=== PATIENT | female | born 1995 | race Caucasian/White ===

== ENCOUNTER 2023-01-07 10:41 | Emergency (ER) | payer MEDICAID, SELFPAY ==
[2023-01-07 10:42] VITALS: BP 108/74; PULSE 93; RESP 18; TEMP 36.6; O2SAT 100; BMI 27.3
--- NOTE | 2023-01-07 11:07 | EX.ED.DYSGE1 ---
HPI History of Present Illness Chief Complaint: Complaint Informant: patient Onset/Context/Timing Onset: Days (5) Context: Gradual Onset Timing: Intermittent Quality: Sharp Location: Left lower quadrant and left lower back Worsened by: Urination Relieved by: Drinking water Narrative Narrative: Patient presents with pelvic pain that has been getting worse over the last 5 days. Patient states it came on gradually. Patient states it is intermittent. Patient states the pain is sharp. Patient states it is over the left lower abdomen and radiates into her back. Patient states it is worse with urination. Patient states it is better after she drinks water. Patient admits to some burning with urination. Patient admits to some nausea but denies any vomiting. Patient denies any fevers or chills. Patient is approximately 19 weeks . Patient denies any abnormal vaginal bleeding or discharge. [facility] Medical History (Updated 01/07/23 @ 15:[address] Israel Rojas DO) GERD (gastroesophageal reflux disease) Medical History no medical history Home Medications hydrocodone-acetaminophen 5-325mg 5mg-325mg 1 tab PO Q6H PRN PRN Pain 3 days #10 TABLETS 01/07/23 [Rx Last Taken Unknown] Allergy/AdvReac Type Severity Reaction Status Date / Time No Known Allergies Allergy Verified 01/07/23 10:41 Surgical History no surgical history no surgical history Social History Smoking Status: Unknown if ever smoked ROS ROS ED Constitutional Constitutional ED: Denies chills or fever(s) Eyes Eyes: Denies blurry vision or change in vision ENT ENT ED: Denies rhinorrhea or sore throat Cardiovascular Cardiovascular: Denies chest pain or palpitations Respiratory/Chest Respiratory/Chest: Denies cough or dyspnea Gastrointestinal Gastrointestinal: Reports abdominal pain and nausea; Denies vomiting Genitourinary Genitourinary ED: Reports dysuria; Denies hematuria Musculoskeletal Musculoskeletal: Reports back pain; Denies neck pain Integumentary Denies abscess or rash Neurologic Neurologic: Denies headache(s) or weakness Allergic/Immunologic Allergic/Immunologic ED: Denies mouth swelling or urticaria EXAM Physical Exam Const Vital Signs: 01/07/23 10:42 01/07/23 14:00 Temperature 97.8 F Temperature Source Temporal Pulse Rate 93 78 Respiratory Rate 18 16 Blood Pressure 108/74 124/67 H Blood Pressure Mean 85 86 Pulse Ox 100 98 Oxygen Delivery Method Room Air Room Air Positive well nourished and well developed General Appearance ED: well developed HEENT Reports moist mucous membranes Neck supple and no JVD Resp normal respiratory effort and clear to auscultation bilaterally Cardio regular rate, regular rhythm and no murmurs GI normal to inspection, nondistended, normoactive bowel sounds Palpation: soft and tender LLQ; Negative for guarding or rebound tenderness present Extremity normal to inspection General Extremety ED: Negative for edema or tenderness General Extremity: Negative for edema Neuro oriented x3, CN's II-XII intact bilaterally and no sensory deficits noted Sensorium / Orientation: alert Motor Exam: strength 5/5 throughout Psych mental status grossly normal Skin no rashes or lesions noted MDM MDM MDM Narrative Medical decision making narrative: Differential diagnosis includes urinary tract infection, ovarian cyst, ureteral calculus, diverticulitis, and colitis. Urinalysis will be obtained to assess for urinary tract infection and hematuria. CBC will be obtained to assess for leukocytosis and anemia. Basic metabolic profile will be obtained to assess for electrolyte abnormality and renal function. Quantitative hCG will be obtained to assess for status. Urinalysis will be obtained to assess for urinary tract infection. Transvaginal ultrasound will be obtained to assess for and ovarian cyst. Lab Data Attestation: I reviewed the patient's lab results. Lab results narrative: CBC was reviewed. There is a slight leukocytosis of 11.1. This is likely from the . Basic metabolic profile was reviewed and was essentially within normal limits. Urinalysis was reviewed. There is no evidence of urinary tract infection or hematuria. Quantitative hCG was reviewed and was [id number]. Labs: Laboratory Results - last 24 hr 01/07/23 01/07/23 01/07/23 11:21 12:18 12:18 WBC 11.1 H RBC 4.14 L Hgb 13.1 Hct 39.9 MCV 96.4 MCH 31.6 MCHC 32.8 RDW Std Deviation 46.3 H RDW Coeff of Mireya 13.2 Plt Count 356 MPV 9.4 Immature Gran % (Auto) 0.900 Neut % (Auto) 80.3 H Lymph % (Auto) 12.0 L [place] % (Auto) 4.5 Eos % (Auto) 1.9 Baso % (Auto) 0.4 Absolute Neuts (auto) 8.9 H Absolute Lymphs (auto) 1.33 Nucleated RBC % 0 Sodium 134 L Potassium 3.5 Chloride 105 Carbon Dioxide 26.0 Anion Gap 3 L BUN 12 Creatinine 0.51 L Estim Creat Clear Calc 140.55 Est GFR (MDRD) Af Amer 182 Est GFR (MDRD) Non-Af 150 BUN/Creatinine Ratio 23.5 H Glucose 88 Calcium 9.3 HCG, Quant Urine Color Yellow Urine Clarity Sl. Cloudy Urine pH 6.0 Ur Specific Maud 1.025 Urine Protein 15 H Urine Glucose (UA) Normal Urine Ketones Negative Urine Occult Blood Negative Urine Nitrite Negative Urine Bilirubin Negative Urine Urobilinogen 1 H Ur Leukocyte Esterase 25 H Urine RBC 0 SEEN Urine WBC 0-5 SEEN Ur Squamous Epith Cells 0-5 SEEN Urine Bacteria 1+ Urine Mucus 0 SEEN 01/07/23 12:18 WBC RBC Hgb Hct MCV MCH MCHC RDW Std Deviation RDW Coeff of Mireya Plt Count MPV Immature Gran % (Auto) Neut % (Auto) Lymph % (Auto) [place] % (Auto) Eos % (Auto) Baso % (Auto) Absolute Neuts (auto) Absolute Lymphs (auto) Nucleated RBC % Sodium Potassium Chloride Carbon Dioxide Anion Gap BUN Creatinine Estim Creat Clear Calc Est GFR (MDRD) Af Amer Est GFR (MDRD) Non-Af BUN/Creatinine Ratio Glucose Calcium HCG, Quant 41803 H Urine Color Urine Clarity Urine pH Ur Specific Maud Urine Protein Urine Glucose (UA) Urine Ketones Urine Occult Blood Urine Nitrite Urine Bilirubin Urine Urobilinogen Ur Leukocyte Esterase Urine RBC Urine WBC Ur Squamous Epith Cells Urine Bacteria Urine Mucus Radiography Diagnostic Testing: Clinical Impression(s) from Imaging Studies Obstetrics Ultrasound 01/07/23 12:02 IMPRESSION: Single live uterine gestation. No evidence of a ovarian torsion. Electronically Signed: Emiliano Lawson MD at 13:40 EDT , Pelvic ultrasound was obtained. There is a single live intrauterine . There is no evidence of ovarian torsion or cyst. This was interpreted by the radiologist and was also independently reviewed by myself. Treatment and Re-Evaluation :: Patient was advised of her findings. Patient was advised that there is still is a possibility of a ureteral calculus however, with her , I do not want to do a CT scan of her abdomen pelvis to evaluate for this at this time. Patient will be given a prescription for hydrocodone. Patient will be instructed to drink plenty of fluids. Patient was instructed to follow-up with her primary care physician and [employer] in 3 to 5 days. Patient was instructed return if worse in any way. Patient understood and was agreeable with the plan. All questions were answered. Discharge Plan Triage Chief Complaint: Complaint ED Provider: Israel Rojas Dx/Rx/DC Orders Clinical Impression: Left lower quadrant abdominal pain, Instructions: ED Abdominal Pain Unkn Cause Fem Prescriptions: New hydrocodone-acetaminophen [hydrocodone-acetaminophen] 5-325 mg tablet 1 tab PO Q6H PRN PRN (Reason: Pain) 3 Days Qty: 10 0RF Primary Care Provider: ALLY MCNEILL Referrals: ALLY MCNEILL [Other] - 3-5 Days Disposition Disposition: Home, Self Care
--- NOTE | 2023-01-07 12:02 | US_ITS ---
STUDY: SECOND AND THIRD TRIMESTER OBSTETRICAL ULTRASOUND - LIMITED REASON FOR EXAM: Female, 27 years old left lower quadrant pain. LMP: August 24, 2022. PRIOR ULTRASOUND: None. TECHNIQUE: Transabdominal TECHNICAL QUALITY: Adequate. FINDINGS: There is a single intrauterine fetus. The fetus is in a cephalic presentation. There is demonstrated cardiac activity with a heart rate of 141 bpm. There is a normal amniotic fluid volume. The largest amniotic fluid pocket measures 5.6 cm x 9.9 cm. The amniotic fluid index (HORACE) is within normal limits. The placenta is anterior in location and is not low lying. There are Grade 0 placental changes. The cervix measures 4.1 cm in length. The right ovary was not visualized. The left ovary measures 2.1 signed by 1.7 cm x 1 cm. There is flow to the visualized left ovary. US/OB Limited (No Biometrics) IMPRESSION: Single live uterine gestation. No evidence of a ovarian torsion. Electronically Signed: Emiliano Lawson MD at 13:40 EDT ,
[2023-01-07 12:20] LABS: Mucous, Urine 0 SEEN /hpf (<or=2+); Red Blood Cells-Urine 0 SEEN /hpf (0-5)
[2023-01-07] MEDS: 0.9% Normal Saline 1,000 ML 1000 ML IV (12:22)
[2023-01-07 12:24] LABS: Absolute Lymphocyte Count 1.33 X10^3/uL (0.83-4.51); Absolute Neutrophil Count 8.9 X10^3/uL (2.0-7.7); Basophil# 0.04 X10^3/uL; Basophil% 0.4 % (0-1); Eosinophil# 0.21 X10^3/uL; Eosinophils% 1.9 % (0-5); Hematocrit 39.9 % (37-47); Hemoglobin 13.1 g/dL (12.0-15.0); Lymphocyte # 1.33 X10^3/ul (0.83-4.51); Mean Corp Hgb Conc 32.8 g/dL (32-36); Mean Corpuscular Hgb 31.6 pg (27.0-32.0); Mean Corpuscular Volume 96.4 fL (81-99); Mean Platelet Vol. 9.4 fl (6.2-12.0); Monocyte% 4.5 % (0-10); NRBC Flagged by Analyzer 0 % (0-5); Neutrophil # 8.94 X10^3/uL (2.7-7.7); Neutrophil % 80.3 % (47-70); Platelet Count 356 K/mm3 (150-450); RBC Distribution Width CV 13.2 % (11.6-14.6); RBC Distribution Width SD 46.3 fl (35.1-43.9); Red Blood Count 4.14 M/mm3 (4.2-5.4); White Blood Count 11.1 K/mm3 (4.4-11.0)
[2023-01-07 12:31] LABS: Color, Urine Yellow (Yellow); Glucose, Dipstick Normal (Normal); Ketone-Dipstick Negative (Negative); Leukocyte Esterase-Dipstick 25 /ul (Negative); Nitrite-Dipstick Negative (Negative); Occult Blood-Urine Negative /ul (Negative); Protein-Dipstick 15 mg/dl (Negative); Specific Gravity, Urine 1.025 (1.002-1.030); Urine Bilirubin Dipstick Negative (Negative); Urine Clarity Sl. Cloudy (Clear); Urine Urobilinogen 1 mg/dl (Normal)
[2023-01-07 12:38] LABS: Bacteria 1+ /hpf (None Seen); Squamous Epithelial Cells - UA 0-5 SEEN /hpf (5-10); White Blood Cells 0-5 SEEN /hpf (0-5)
[2023-01-07 12:38] LABS: Anion Gap 3 (5-15); BUN 12 mg/dL (7-18); BUN/Creat Ratio 23.5 RATIO (10-20); Calcium,Total 9.3 mg/dL (8.5-10.1); Chloride 105 mmol/L (98-107); Creatinine, Serum 0.51 mg/dL (0.55-1.02); EST Glomerular Filtration Rate 150 mL/min (>60); Est Glom Filt Rate - Afr Amer 182 mL/min (>60); Estimated Creatinine Clearance 140.55 ml/min; Glucose 88 mg/dL (74-106); Potassium 3.5 mmol/L (3.5-5.1); Sodium Level 134 mmol/L (136-145)
[2023-01-07 14:00] VITALS: BP 124/67; PULSE 78; RESP 16; O2SAT 98
[2023-01-07] MEDS: HYDROcodone Bitartrate/Apap 5/325 Tablet PO (15:26)
[2023-01-07 15:28] VITALS: BP 112/76; PULSE 78; RESP 16; TEMP 36.6; O2SAT 99
== END 2023-01-07 15:29 | disposition home or self-care (01) ==
PROVIDERS: Emergency Provider Emergency Medicine; Visit Provider Emergency Medicine
DX: O99.891 Other specified diseases and conditions complicating pregnancy (principal); R10.32 Left lower quadrant pain; R30.0 Dysuria; M54.9 Dorsalgia, unspecified; Z3A.19 19 weeks gestation of pregnancy; R10.2 Pelvic and perineal pain
CPT/HCPCS: 76815; 80048; 81001; 84702; 85025; 96360; 99285; J7030